=== PATIENT | female | born 1960 ===

== ENCOUNTER 2017-11-04 17:18 | Emergency (ER) | payer OTHER ==
[2017-11-04 17:32] VITALS: BMI 26.2
[2017-11-04 17:36] VITALS: RESP 18; TEMP 98.4
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
[2017-11-04 19:59] VITALS: BP 137/82; PULSE 71; O2SAT 98
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
== END 2017-11-04 19:59 | disposition home or self-care (01) ==
LOC: ED 17:18 → MERGE 17:18 → ED 19:59
DX: S09.90XA Unspecified injury of head, initial encounter (principal); S50.01XA Contusion of right elbow, initial encounter; S90.30XA Contusion of unspecified foot, initial encounter; Y04.0XXA Assault by unarmed brawl or fight, initial encounter

== ENCOUNTER 2018-03-27 17:45 | Observation (INO) | payer MEDICAID ==
[2018-03-27] MEDS ORDERED: Sodium Chloride 0.9% 1,000 ML IV STA (19:46)
[2018-03-27 20:45] LABS: ALB/GLOB RATIO 1.2 (1.1-1.8); ALBUMIN 4.6 g/dL (3.0-4.8); ALT/SGPT 32 U/L (7-56); AST/SGOT 36 U/L (14-36); BLOOD UREA NITROGEN 12 mg/dL (7-21); CALCIUM 9.4 mg/dL (8.4-10.5); GFR AFRICAN-AMERICAN > 60; GFR NON-AFRICAN AMERICAN > 60
[2018-03-27 20:53] LABS: RBC 4.88 10^6/uL (3.5-6.1); WHITE BLOOD COUNT 4.2 10^3/ul (4.5-11.0)
[2018-03-27 20:54] LABS: BASO % 0.5 % (0.0-3.0); EOS # 0.1 (0.0-0.7); EOS % 1.7 % (1.5-5.0); GRAN # 1.63 (1.4-6.5); GRAN % 38.8 % (50.0-68.0); LYMPH # 2.2 (1.2-3.4); MEAN CORPUSCULAR HEMOGLOBIN 28.7 pg (25.0-35.0); MEAN CORPUSCULAR HGB CONC 33.7 g/dl (31.0-37.0); MONO # 0.3 (0.1-0.6); RED CELL DISTRIBUTION WIDTH 13.1 % (11.5-14.5)
[2018-03-27 20:55] LABS: BASO # 0.02 K/mm3 (0.0-2.0)
[2018-03-27 21:02] LABS: TROPONIN I < 0.01 ng/mL
[2018-03-27 21:03] LABS: URINE BILIRUBIN NEGATIVE (NEGATIVE); URINE BLOOD NEGATIVE (NEGATIVE); URINE GLUCOSE (UA) NEGATIVE (NEGATIVE); URINE LEUKOCYTE ESTERASE TRACE Leu/uL (NEGATIVE); URINE PROTEIN NEGATIVE mg/dL (<30 mg/dL); URINE UROBILINOGEN 0.2 E.U./dL (<1 E.U./dL)
[2018-03-27 21:04] LABS: URINE APPEARANCE CLEAR (CLEAR); URINE COLOR YELLOW (YELLOW)
[2018-03-27 21:08] LABS: URINE RBC 0 - 2 /hpf (0-2)
[2018-03-27 21:09] LABS: URINE BACTERIA MOD (NEG)
--- NOTE | 2018-03-27 23:07 | ED PDOC ---
Arrival/HPI - General Chief Complaint: Dizziness/Lightheaded Time Seen by Provider: 03/27/18 18:53 Historian: Patient, Family - History of Present Illness Narrative History of Present Illness (Text): 03/28/18 00:07 57-year-old female presents today with dizziness and near syncope. Patient states since last night she's been feeling extremely dizzy. Patient states that she stands up he feels as if the room is spinning. Patient states she's had some intermittent palpitations. States she's been feeling nauseous. She denies any vomiting or diarrhea. No urinary symptoms. No fevers or chills. No sick contacts. pt states symptoms have improved. pt states while in the ER the nausea returned, but resolved shortly after. Time/Duration: Other (1 day) Past Medical History - Provider Review Nursing Documentation Reviewed: Yes - Travel History Have you recently traveled outside [place] w/in the past 3 mons?: No - Infectious Disease Hx of Infectious Diseases: None - Tetanus Immunization Tetanus Immunization: Unknown - Reproductive Menopause: Yes - Psychiatric Hx Substance Use: No - Anesthesia Hx Anesthesia: No Family/Social History - Physician Review Nursing Documentation Reviewed: Yes Family/Social History: Unknown Family HX Smoking Status: Never Smoked Hx Alcohol Use: No Hx Substance Use: No Allergies/Home Meds Allergies/Adverse Reactions: Allergies No Known Allergies Allergy (Verified 03/27/18 18:40) Home Medications: Home Meds Medication Instructions Recorded Confirmed Calcium Carbonate [Calcium] 1,200 mg PO DAILY 03/27/18 03/27/18 Review of Systems - Review of Systems Constitutional: absent: Fatigue, Fevers Eyes: absent: Vision Changes, Photophobia, Eye Pain Respiratory: absent: SOB, Cough Cardiovascular: Chest Pain, Palpitations. absent: Syncope Gastrointestinal: Nausea. absent: Abdominal Pain, Vomiting Genitourinary Female: absent: Dysuria, Frequency, Hematuria Musculoskeletal: absent: Arthralgias, Back Pain, Neck Pain Skin: absent: Rash Neurological: Dizziness Psychiatric: absent: Anxiety, Depression, Suicidal Ideation Physical Exam Vital Signs Reviewed: Yes Vital Signs Temp Pulse Resp BP Pulse Ox 03/27/18 22:36 74 18 114/83 99 03/27/18 20:35 70 18 111/68 99 03/27/18 18:37 98.4 F 73 18 110/66 99 Temperature: Afebrile Blood Pressure: Normal Pulse: Regular Respiratory Rate: Normal Appearance: Positive for: Well-Appearing, Non-Toxic, Comfortable Pain Distress: None Mental Status: Positive for: Alert and Oriented X 3 - Systems Exam Head: Present: Atraumatic Pupils: Present: PERRL Extroacular Muscles: Present: EOMI Conjunctiva: Present: Normal Mouth: Present: Moist Mucous Membranes Neck: Present: Normal Range of Motion, Trachea Midline. No: MIDLINE TENDERNESS , Paraspinal Tenderness Respiratory/Chest: Present: Clear to Auscultation, Good Air Exchange. No: Respiratory Distress, Accessory Muscle Use Cardiovascular: Present: Regular Rate and Rhythm, Normal S1, S2. No: Murmurs Abdomen: No: Tenderness, Distention, Peritoneal Signs, Rebound, Guarding Upper Extremity: Present: Normal ROM Lower Extremity: Present: Normal ROM Neurological: Present: GCS=15, Speech Normal, Motor Func Grossly Intact, Normal Sensory Function, Gait Normal Skin: Present: Warm, Dry, Normal Color. No: Rashes Psychiatric: Present: Alert, Oriented x 3 Medical Decision Making ED Course and Treatment: 03/28/18 00:12 57-year-old female presents to the dizziness chest pain and palpitations, and nausea which have been intermittent since last night CBC within normal limits CMP within normal limits Troponin within normal limits CAT scan of the head: FINDINGS: Brain: There is no evidence of intracranial hemorrhage, mass lesion, or mass effect. No abnormal extra-axial or parenchymal fluid collections. The posterior fossa is unremarkable. Ventricles: The ventricles and basilar cisterns are unremarkable. Bones/joints: The bony calvarium is unremarkable. Sinuses: Mild mucosal thickening present in the ethmoid sinuses. Mucous retention cyst in the right maxillary sinus present. Mastoid air cells: Normal as visualized. No mastoid effusion. Soft tissues: Normal. IMPRESSION: There is no acute intracranial process. Urinalysis: trace leukocytes ASA given Po case discussed with dr. son; accepts observational status admission. all aspects of this case were discussed the attending of record. impression; dizziness admit observational status to [facility]. - Lab Interpretations Lab Results: 03/27/18 20:29 03/27/18 20:29 Lab Results 03/27/18 20:29: Urine Color Yellow, Urine Appearance Clear, Urine pH 6.0, Ur Specific [place] 1.020, Urine Protein Negative, Urine Glucose (UA) Negative, Urine Ketones Negative, Urine Blood Negative, Urine Nitrate Negative, Urine Bilirubin Negative, Urine Urobilinogen 0.2, Ur Leukocyte Esterase Trace H, Urine RBC 0 - 2, Urine WBC 2 - 5, Ur Epithelial Cells 4 - 5, Urine Bacteria Mod 03/27/18 20:29: WBC 4.2 L, RBC 4.88, Hgb 14.0, Hct 41.5, MCV 85.0, MCH 28.7, MCHC 33.7, RDW 13.1, Plt Count 249, MPV 10.0, Gran % 38.8 L, Lymph % (Auto) 53.0 H, [place] % (Auto) 6.0, Eos % (Auto) 1.7, Baso % (Auto) 0.5, Gran # 1.63, Lymph # (Auto) 2.2, [place] # (Auto) 0.3, Eos # (Auto) 0.1, Baso # (Auto) 0.02 03/27/18 20:29: Sodium 141, Potassium 4.3, Chloride 99, Carbon Dioxide 30, Anion Gap 16, BUN 12, Creatinine 0.6 L, Est GFR ( Amer) > 60, Est GFR ( Non-Af Amer) > 60, Random Glucose 116 H, Calcium 9.4, Total Bilirubin 0.4, AST 36, ALT 32, Alkaline Phosphatase 71, Lactate Dehydrogenase 459, Total Creatine Kinase 59, Troponin I < 0.01, Total Protein 8.4 H, Albumin 4.6, Globulin 3.8, Albumin/Globulin Ratio 1.2 - RAD Interpretation Radiology Orders: 03/27/18 19:44 HEAD W/O CONTRAST [CT] Stat CHEST PORTABLE [RAD] Stat - Medication Orders Current Medication Orders: Discontinued Medications Aspirin (Aspirin) 325 mg PO STAT STA Stop: 03/28/18 00:14 Last Admin: 03/28/18 00:30 Dose: 325 mg Sodium Chloride (Sodium Chloride 0.9%) 1,000 mls @ 999 mls/hr IV .Q1H1M STA Stop: 03/27/18 20:46 Last Admin: 03/27/18 20:28 Dose: 999 mls/hr eMAR Start Stop Document 03/27/18 20:28 MS (Rec: 03/28/18 00:29 MS [id number]) Intravenous Solution Start Date 03/27/18 Start Time 20:28 End Date 03/27/18 End time 21:28 Total Infusion Time 60 Disposition/Present on Arrival - Present on Arrival Any Indicators Present on Arrival: No History of DVT/PE: No History of Uncontrolled Diabetes: No Urinary Catheter: No History of Decub. Ulcer: No History Surgical Site Infection Following: None - Disposition Have Diagnosis and Disposition been Completed?: Yes Diagnosis: Dizziness Disposition: HOSPITALIZED Disposition Time: 00:17 Patient Plan: Observation Patient Problems: Current Active Problems Problem Status Onset Dizziness Acute Condition: FAIR Forms: [employer] (Guatemalan)
--- NOTE | 2018-03-27 23:49 | CP.PCM.HP ---
History of Present Illness - History of Present Illness History of Present Illness: PGY-1 H&P for Dr. Klein This is a 57 year old female with PMHx hypothyroidism who presents for dizziness. This began yesterday evening and persisted this morning. Patient states that it feels that the room was spinning. She has never had this experience for her and now presents for evaluation. At the time of encounter, patient states that her dizziness has resolved. Patient states that she attributes these issues to menopause as she also feels palpitations and hot flashes intermittently. Her last menstrual cycle was 5 years ago. Patient has also been stressed because of her teenage daughters. She attributes that as a possible cause of her symptoms. Patient denies fever, chills, chest pain, dyspnea, abdominal pain, dysuria. PMHx: Hypothyroidism (states did not need medications for it) PSHx: Denies Allergies: NKDA Social: Denies tobacco, alcohol, drugs. Lives with and kids. Family Hx: Denies PMD: denies PMD but states that she travels to [place] once a year for a check-up Home medications: calcium Present on Admission - Present on Admission Any Indicators Present on Admission: No Review of Systems - Constitutional Constitutional: absent: Chills, Fever - EENT Eyes: absent: Change in Vision Ears: absent: Decreased Hearing Nose/Mouth/Throat: absent: Nasal Congestion - Cardiovascular Cardiovascular: Palpitations (intermittent). absent: Chest Pain - Respiratory Respiratory: absent: Dyspnea - Gastrointestinal Gastrointestinal: absent: Abdominal Pain, Constipation, Diarrhea, Nausea, Vomiting - Genitourinary Genitourinary: absent: Dysuria - Musculoskeletal Musculoskeletal: absent: Back Pain - Integumentary Integumentary: absent: Rash - Neurological Neurological: Dizziness (improved). absent: Weakness - Psychiatric Psychiatric: absent: Anxiety - Endocrine Endocrine: Palpitations (intermittent) Past Patient History - Infectious Disease Hx of Infectious Diseases: None - Tetanus Immunizations Tetanus Immunization: Unknown - Past Social History Smoking Status: Never Smoked - PSYCHIATRIC Hx Substance Use: No - SURGICAL HISTORY Hx Surgeries: No - ANESTHESIA Hx Anesthesia: No Meds Allergies/Adverse Reactions: Allergies Allergy/AdvReac Type Severity Reaction Status Date / Time No Known Allergies Allergy Verified 03/27/18 18:40 Physical Exam - Constitutional Appears: No Acute Distress - Head Exam Head Exam: ATRAUMATIC, NORMOCEPHALIC - Eye Exam Eye Exam: EOMI, PERRL - ENT Exam ENT Exam: Mucous Membranes Moist - Respiratory Exam Respiratory Exam: Clear to Auscultation Bilateral, NORMAL BREATHING PATTERN. absent: Rales, Rhonchi, Wheezes - Cardiovascular Exam Cardiovascular Exam: REGULAR RHYTHM, +S1, +S2 - GI/Abdominal Exam GI & Abdominal Exam: Normal Bowel Sounds, Soft. absent: Distended, Tenderness - Extremities Exam Extremities exam: Negative for: pedal edema - Neurological Exam Neurological exam: Alert, CN II-XII Intact, Oriented x3 - Psychiatric Exam Psychiatric exam: Normal Affect, Normal Mood - Skin Skin Exam: Dry, Warm Results - Vital Signs Recent Vital Signs: Last Vital Signs Temp 98.4 F 03/27/18 18:37 Pulse 74 03/27/18 22:36 Resp 18 03/27/18 22:36 BP 114/83 03/27/18 22:36 Pulse Ox 99 03/27/18 22:36 - Labs Result Diagrams: 03/27/18 20:29 03/27/18 20:29 Labs: Laboratory Results - last 24 hr 03/27/18 03/27/18 03/27/18 20:29 20:29 20:29 WBC 4.2 L RBC 4.88 Hgb 14.0 Hct 41.5 MCV 85.0 MCH 28.7 MCHC 33.7 RDW 13.1 Plt Count 249 MPV 10.0 Gran % 38.8 L Lymph % (Auto) 53.0 H [place] % (Auto) 6.0 Eos % (Auto) 1.7 Baso % (Auto) 0.5 Gran # 1.63 Lymph # (Auto) 2.2 [place] # (Auto) 0.3 Eos # (Auto) 0.1 Baso # (Auto) 0.02 Sodium 141 Potassium 4.3 Chloride 99 Carbon Dioxide 30 Anion Gap 16 BUN 12 Creatinine 0.6 L Est GFR ( Amer) > 60 Est GFR (Non-Af Amer) > 60 Random Glucose 116 H Calcium 9.4 Total Bilirubin 0.4 AST 36 ALT 32 Alkaline Phosphatase 71 Lactate Dehydrogenase 459 Total Creatine Kinase 59 Troponin I < 0.01 Total Protein 8.4 H Albumin 4.6 Globulin 3.8 Albumin/Globulin Ratio 1.2 Urine Color Yellow Urine Appearance Clear Urine pH 6.0 Ur Specific [place] 1.020 Urine Protein Negative Urine Glucose (UA) Negative Urine Ketones Negative Urine Blood Negative Urine Nitrate Negative Urine Bilirubin Negative Urine Urobilinogen 0.2 Ur Leukocyte Esterase Trace H Urine RBC 0 - 2 Urine WBC 2 - 5 Ur Epithelial Cells 4 - 5 Urine Bacteria Mod Assessment & Plan - Assessment and Plan (Free Text) Assessment: This is a 57 year old female with PMHx hypothyroidism who presents for dizziness. Plan: 1. Dizziness -NSR on initial EKG -initial troponin negative -continue to trend troponin and EKG -CT Head negative for acute pathology -orthostatic vitals as documented under patient care section are negative -f/u lipid panel, hemoglobin A1c, TSH, free T4 -Neurology consulted 2. Prophylaxis -Protonix -Heparin SC Discussed with Dr. Latoya Penaloza PGY-1
[2018-03-28] MEDS ORDERED: Pantoprazole 40 mg EC Tab PO SCH (06:00)
[2018-03-28] MEDS: Sodium Chloride 0.9% 1,000 ML IV SCH ×3 (06:14→10:49)
[2018-03-28 06:29] VITALS: BMI 10.5
[2018-03-28 06:32] VITALS: O2SAT 97
[2018-03-28 07:07] LABS: BASO # 0.02 K/mm3 (0.0-2.0); BASO % 0.4 % (0.0-3.0); EOS # 0.1 (0.0-0.7); GRAN # 1.98 (1.4-6.5); GRAN % 43.9 % (50.0-68.0); HEMOGLOBIN 12.6 g/dL (12.0-16.0); LYMPH % 45.1 % (22.0-35.0); MEAN CELL VOLUME 85.5 fl (80.0-105.0); MEAN CORPUSCULAR HEMOGLOBIN 28.2 pg (25.0-35.0); MEAN PLATELET VOLUME 10.2 fl (7.0-11.0); MONO # 0.4 (0.1-0.6); MONO % 8.6 % (1.0-6.0); RBC 4.47 10^6/uL (3.5-6.1); RED CELL DISTRIBUTION WIDTH 13.2 % (11.5-14.5); WHITE BLOOD COUNT 4.5 10^3/ul (4.5-11.0)
[2018-03-28 07:41] LABS: ALB/GLOB RATIO 1.2 (1.1-1.8); ALBUMIN 3.9 g/dL (3.0-4.8); ALT/SGPT 24 U/L (7-56); AST/SGOT 36 U/L (14-36); BLOOD UREA NITROGEN 12 mg/dL (7-21); CALCIUM 8.7 mg/dL (8.4-10.5); GFR AFRICAN-AMERICAN > 60; GFR NON-AFRICAN AMERICAN > 60; HDL CHOLESTEROL 49 mg/dL (29-60)
[2018-03-28 07:51] LABS: LDL CHOLESTEROL 111 mg/dL (0-129); TROPONIN I < 0.01 ng/mL
--- NOTE | 2018-03-28 08:02 | CT ---
PROCEDURE: CT HEAD WITHOUT CONTRAST. HISTORY: dizziness COMPARISON: None available. TECHNIQUE: Axial computed tomography images were obtained through the head/brain without intravenous contrast. Radiation dose: Total exam DLP = 1115 mGy-cm. This CT exam was performed using one or more of the following dose reduction techniques: Automated exposure control, adjustment of the mA and/or kV according to patient size, and/or use of iterative reconstruction technique. FINDINGS: HEMORRHAGE: No intracranial hemorrhage. BRAIN: No mass effect or edema. No atrophy or chronic microvascular ischemic changes. VENTRICLES: Unremarkable. No hydrocephalus. CALVARIUM: Unremarkable. PARANASAL SINUSES: Unremarkable as visualized. No significant inflammatory changes. MASTOID AIR CELLS: Unremarkable as visualized. No inflammatory changes. OTHER FINDINGS: None. IMPRESSION: No acute findings
--- NOTE | 2018-03-28 10:55 | RAD ---
HISTORY: dizziness COMPARISON: No prior. FINDINGS: LUNGS: No active pulmonary disease. PLEURA: No significant pleural effusion identified, no pneumothorax apparent. CARDIOVASCULAR: Normal. OSSEOUS STRUCTURES: No significant abnormalities. VISUALIZED UPPER ABDOMEN: Normal. OTHER FINDINGS: None. IMPRESSION: No active disease.
--- NOTE | 2018-03-28 13:37 | CP.PCM.DIS ---
<Moisés Hernandez - Last Filed: 03/28/18 14:19> Provider - Provider Date of Admission: 03/28/18 02:16 Attending physician: Aletha Briones MD Primary care physician: None Consults: Neurology: Dr. Maldonado Time Spent in preparation of Discharge (in minutes): 35 Diagnosis - Discharge Diagnosis (1) Dizziness Status: Acute (2) Hypothyroid Status: Chronic Hospital Course - Lab Results Lab Results: Most Recent Lab Values WBC 4.5 10^3/ul (4.5-11.0) 03/28/18 06:30 RBC 4.47 10^6/uL (3.5-6.1) 03/28/18 06:30 Hgb 12.6 g/dL (12.0-16.0) 03/28/18 06:30 Hct 38.2 % (36.0-48.0) 03/28/18 06:30 MCV 85.5 fl (80.0-105.0) 03/28/18 06:30 MCH 28.2 pg (25.0-35.0) 03/28/18 06:30 MCHC 33.0 g/dl (31.0-37.0) 03/28/18 06:30 RDW 13.2 % (11.5-14.5) 03/28/18 06:30 Plt Count 224 10^3/uL (120.0-450.0) 03/28/18 06:30 MPV 10.2 fl (7.0-11.0) 03/28/18 06:30 Gran % 43.9 % (50.0-68.0) L 03/28/18 06:30 Lymph % (Auto) 45.1 % (22.0-35.0) H 03/28/18 06:30 [place] % (Auto) 8.6 % (1.0-6.0) H 03/28/18 06:30 Eos % (Auto) 2.0 % (1.5-5.0) 03/28/18 06:30 Baso % (Auto) 0.4 % (0.0-3.0) 03/28/18 06:30 Gran # 1.98 (1.4-6.5) 03/28/18 06:30 Lymph # (Auto) 2.0 (1.2-3.4) 03/28/18 06:30 [place] # (Auto) 0.4 (0.1-0.6) 03/28/18 06:30 Eos # (Auto) 0.1 (0.0-0.7) 03/28/18 06:30 Baso # (Auto) 0.02 K/mm3 (0.0-2.0) 03/28/18 06:30 Sodium 140 mmol/L (132-148) 03/28/18 06:30 Potassium 4.0 mmol/L (3.6-5.0) 03/28/18 06:30 Chloride 102 mmol/L (98-107) 03/28/18 06:30 Carbon Dioxide 29 mmol/L (21-33) 03/28/18 06:30 Anion Gap 13 (10-20) 03/28/18 06:30 BUN 12 mg/dL (7-21) 03/28/18 06:30 Creatinine 0.7 mg/dl (0.7-1.2) 03/28/18 06:30 Est GFR ( Amer) > 60 03/28/18 06:30 Est GFR (Non-Af Amer) > 60 03/28/18 06:30 Random Glucose 107 mg/dL (70-110) 03/28/18 06:30 Hemoglobin A1c 5.6 % (4.2-6.5) 03/28/18 06:30 Calcium 8.7 mg/dL (8.4-10.5) 03/28/18 06:30 Phosphorus 3.6 mg/dL (2.5-4.5) 03/28/18 06:30 Magnesium 2.0 mg/dL (1.7-2.2) 03/28/18 06:30 Total Bilirubin 0.4 mg/dL (0.2-1.3) 03/28/18 06:30 AST 36 U/L (14-36) 03/28/18 06:30 ALT 24 U/L (7-56) 03/28/18 06:30 Alkaline Phosphatase 62 U/L (38-126) 03/28/18 06:30 Lactate Dehydrogenase 459 U/L (333-699) 03/27/18 20:29 Total Creatine Kinase 59 U/L (35-230) 03/27/18 20:29 Troponin I < 0.01 ng/mL 03/28/18 06:30 Total Protein 7.2 g/dL (5.8-8.3) 03/28/18 06:30 Albumin 3.9 g/dL (3.0-4.8) 03/28/18 06:30 Globulin 3.3 gm/dL 03/28/18 06: Albumin/Globulin Ratio 1.2 (1.1-1.8) 03/28/18 06:30 Triglycerides 99 mg/dL (35-160) 03/28/18 06:30 Cholesterol 198 mg/dL (130-200) 03/28/18 06:30 LDL Cholesterol Direct 111 mg/dL (0-129) 03/28/18: HDL Cholesterol 49 mg/dL (29-60) 03/28/18:30 Free T4 1.00 ng/dL (0.78-2.19) 03/28/18 06: TSH 3rd Generation 9.48 mIU/mL (0.46-4.68) H 03/28/18 06:30 Urine Color Yellow (YELLOW) 03/27/18 20: Urine Appearance Clear (CLEAR) 03/27/18 20: Urine pH 6.0 (4.7-8.0) 03/27/18 20: Ur Specific [place] 1.020 (1.005-1.035) 03/27/18 20: Urine Protein Negative mg/dL (<30 mg/dL) 03/27/18 20: Urine Glucose (UA) Negative mg/dL (NEGATIVE) 03/27/18 20: Urine Ketones Negative mg/dL (NEGATIVE) 03/27/18 20: Urine Blood Negative (NEGATIVE) 03/27/18 20: Urine Nitrate Negative (NEGATIVE) 03/27/18 20: Urine Bilirubin Negative (NEGATIVE) 03/27/18 20: Urine Urobilinogen 0.2 E.U./dL (<1 E.U./dL) 03/27/18 20:29 Ur Leukocyte Esterase Trace Angie/uL (NEGATIVE) H 03/27/18 20:29 Urine RBC 0 - 2 /hpf (0-2) 03/27/18 20:29 Urine WBC 2 - 5 /hpf (0-6) 03/27/18 20:29 Ur Epithelial Cells 4 - 5 /hpf (0-5) 03/27/18 20:29 Urine Bacteria Mod (NEG) 03/27/18 20:29 - Hospital Course Hospital Course: Patient is a 57 year old female with past medical history of hypothyroidism who is currently not complaint with thyroid medication who presented to [facility] ED complaining of dizziness and visualization of room spinning. Patient was evaluated in ED and found to have resolution of her symptoms. She was admitted for further observation and medical management. On admission EKG was NSR and within normal range, Head CT was read as negative for intracranial pathology. Patient underwent medical lab testing which showed elevated TSH and normal free T4. Patient was previously taking Synthroid for hypothyroidism. Patient was given prescription for low dose Synthroid. Neurology was consulted and evaluated the patient. Patient was able to ambulate without assistance and had resolution of her symptoms at time of interview and exam. Patient was instructed on risks and signs and symptoms to be mindful of upon discharge. Discharge planning including outpatient follow up, medication reconciliation and signs and symptoms to be aware of for return were discussed in detail. Patient was in understanding and agreeable. See chart for full details. - Date & Time of H&P Date of H&P: 03/27/18 Time of H&P: 23:49 Discharge Exam - Head Exam Head Exam: ATRAUMATIC, NORMOCEPHALIC - Eye Exam Eye Exam: EOMI, PERRL - Neck Exam Neck exam: Full Rom - Respiratory Exam Respiratory Exam: Clear to PA & Lateral, Wheezes, NORMAL BREATHING PATTERN, UNREMARKABLE. absent: Rales, Rhonchi, Stridor - Cardiovascular Exam Cardiovascular Exam: REGULAR RHYTHM, +S1, +S2 - GI/Abdominal Exam GI & Abdominal Exam: Normal Bowel Sounds, Soft, Unremarkable. absent: Tenderness - Extremities Exam Extremities exam: normal capillary refill, pedal pulses present - Neurological Exam Neurological exam: Alert, CN II-XII Intact, Normal Gait, Oriented x3 - Psychiatric Exam Psychiatric exam: Normal Affect, Normal Mood - Skin Skin Exam: Dry, Warm Discharge Plan - Discharge Medications Prescriptions: Levothyroxine [Synthroid] 50 mcg PO QAM #30 tab Meclizine [Antivert] 12.5 mg PO TID PRN #21 tab PRN Reason: Dizziness - Follow Up Plan Condition: FAIR Disposition: HOME/ ROUTINE Instructions: Hypothyroidism (Underactive Thyroid) (DC), Dizziness, Nonvertigo , (DC) Additional Instructions: Follow up with [facility] outpatient clinic, referral information provided Take medications as prescribed to you - Synthroid 50mcg PO QAM Return to nearest emergency department if you experience loss of consciousness, chest pain, shortness of breath, focal weakness, change in vision, speech or facial asymmetry Referrals: [facility] at [facility] [Outside] <Aletha Briones - Last Filed: 03/29/18 09:25> Provider - Provider Date of Admission: 03/28/18 02:16 Attending physician: Aletha Briones MD Hospital Course - Lab Results Lab Results: Most Recent Lab Values WBC 4.5 10^3/ul (4.5-11.0) 03/28/18 06:30 RBC 4.47 10^6/uL (3.5-6.1) 03/28/18 06:30 Hgb 12.6 g/dL (12.0-16.0) 03/28/18 06:30 Hct 38.2 % (36.0-48.0) 03/28/18 06:30 MCV 85.5 fl (80.0-105.0) 03/28/18 06:30 MCH 28.2 pg (25.0-35.0) 03/28/18 06:30 MCHC 33.0 g/dl (31.0-37.0) 03/28/18 06:30 RDW 13.2 % (11.5-14.5) 03/28/18 06:30 Plt Count 224 10^3/uL (120.0-450.0) 03/28/18 06:30 MPV 10.2 fl (7.0-11.0) 03/28/18 06:30 Gran % 43.9 % (50.0-68.0) L 03/28/18 06:30 Lymph % (Auto) 45.1 % (22.0-35.0) H 03/28/18 06:30 [place] % (Auto) 8.6 % (1.0-6.0) H 03/28/18 06:30 Eos % (Auto) 2.0 % (1.5-5.0) 03/28/18 06:30 Baso % (Auto) 0.4 % (0.0-3.0) 03/28/18 06:30 Gran # 1.98 (1.4-6.5) 03/28/18 06:30 Lymph # (Auto) 2.0 (1.2-3.4) 03/28/18 06:30 [place] # (Auto) 0.4 (0.1-0.6) 03/28/18 06:30 Eos # (Auto) 0.1 (0.0-0.7) 03/28/18 06:30 Baso # (Auto) 0.02 K/mm3 (0.0-2.0) 03/28/18 06:30 Sodium 140 mmol/L (132-148) 03/28/18 06:30 Potassium 4.0 mmol/L (3.6-5.0) 03/28/18 06:30 Chloride 102 mmol/L (98-107) 03/28/18 06:30 Carbon Dioxide 29 mmol/L (21-33) 03/28/18 06:30 Anion Gap 13 (10-20) 03/28/18 06:30 BUN 12 mg/dL (7-21) 03/28/18 06:30 Creatinine 0.7 mg/dl (0.7-1.2) 03/28/18 06:30 Est GFR ( Amer) > 60 03/28/18 06:30 Est GFR (Non-Af Amer) > 60 03/28/18 06:30 Random Glucose 107 mg/dL (70-110) 03/28/18 06:30 Hemoglobin A1c 5.6 % (4.2-6.5) 03/28/18 06:30 Calcium 8.7 mg/dL (8.4-10.5) 03/28/18 06:30 Phosphorus 3.6 mg/dL (2.5-4.5) 03/28/18 06:30 Magnesium 2.0 mg/dL (1.7-2.2) 03/28/18 06:30 Total Bilirubin 0.4 mg/dL (0.2-1.3) 03/28/18 06:30 AST 36 U/L (14-36) 03/28/18 06:30 ALT 24 U/L (7-56) 03/28/18 06:30 Alkaline Phosphatase 62 U/L (38-126) 03/28/18 06:30 Lactate Dehydrogenase 459 U/L (333-699) 03/27/18 20: Total Creatine Kinase 59 U/L (35-230) 03/27/18 20: Troponin I < 0.01 ng/mL 03/28/18 06:30 Total Protein 7.2 g/dL (5.8-8.3) 03/28/18 06:30 Albumin 3.9 g/dL (3.0-4.8) 03/28/18 06:30 Globulin 3.3 gm/dL 03/28/18 06: Albumin/Globulin Ratio 1.2 (1.1-1.8) 03/28/18 06:30 Triglycerides 99 mg/dL (35-160) 03/28/18 06: Cholesterol 198 mg/dL (130-200) 03/28/18 06:30 LDL Cholesterol Direct 111 mg/dL (0-129) 03/28/18 06:30 HDL Cholesterol 49 mg/dL (29-60) 03/28/18:30 Free T4 1.00 ng/dL (0.78-2.19) 03/28/18 06:30 TSH 3rd Generation 9.48 mIU/mL (0.46-4.68) H 03/28/18 06:30 Urine Color Yellow (YELLOW) 03/27/18 20: Urine Appearance Clear (CLEAR) 03/27/18 20: Urine pH 6.0 (4.7-8.0) 03/27/18 20: Ur Specific [place] 1.020 (1.005-1.035) 03/27/18 20: Urine Protein Negative mg/dL (<30 mg/dL) 03/27/18 20: Urine Glucose (UA) Negative mg/dL (NEGATIVE) 03/27/18 20: Urine Ketones Negative mg/dL (NEGATIVE) 03/27/18: Urine Blood Negative (NEGATIVE) 03/27/18: Urine Nitrate Negative (NEGATIVE) 03/27/18 20: Urine Bilirubin Negative (NEGATIVE) 03/27/18 20: Urine Urobilinogen 0.2 E.U./dL (<1 E.U./dL) 03/27/18 20: Ur Leukocyte Esterase Trace Angie/uL (NEGATIVE) H 03/27/18 20:29 Urine RBC 0 - 2 /hpf (0-2) 03/27/18 20:29 Urine WBC 2 - 5 /hpf (0-6) 03/27/18 20:29 Ur Epithelial Cells 4 - 5 /hpf (0-5) 03/27/18 20:29 Urine Bacteria Mod (NEG) 03/27/18 20:29 Attending/Attestation - Attestation I have personally seen and examined this patient.: Yes I have fully participated in the care of the patient.: Yes I have reviewed all pertinent clinical information, including history, physical exam and plan: Yes Notes (Text): 03/29/18 09:20 Medical record note made by the resident after discussion with my direction and input after the patient was personally seen and examined by me. I have reviewed the chart and agree that the record accurately reflects by personal performance of the history, physical exam, data review, and medical decision-making, in the course for the patient. I have also personally directed the plan of care. 57 yrs old female was admitted with dizziness and vertigo while standing.Patient symptoms were likely due to orthostatic hypotension.There was no focal deficit.Patient symptms has resolved.She is ambulatory.She will be discharged home and will follow up with PCP. Management plan was discussed in detail with patient. Education was provided.
--- NOTE | 2018-03-28 13:46 | CARD ---
APPROVED REPORT EKG Measurement Heart [id number] <Conclusion> Normal sinus rhythm Normal ECG
[2018-03-28 13:52] VITALS: BP 115/69; PULSE 71; RESP 16; TEMP 98.2
--- NOTE | 2018-03-28 14:11 | CARD ---
APPROVED REPORT EKG Measurement Heart [id number] <Conclusion> Normal sinus rhythm Normal ECG
--- NOTE | 2018-03-28 15:01 | CP.PCM.CON ---
History of Present Illness - History of Present Illness History of Present Illness: Mrs. Dukes is a 57-year-old woman with a past medical history of hypothyroidism , who states that she has been having episodes of hot flashes and dizziness. She had two episodes during which she felt the room was spinning, but these only lasted a few seconds. She attributes her symptoms to menopause. She denied headaches, nausea, vomiting, weakness, sensory changes, difficulty with ambulation or any other associated symptoms. CT head was normal. Review of Systems - Review of Systems All systems: reviewed and no additional remarkable complaints except Past Patient History - Infectious Disease Hx of Infectious Diseases: None - Tetanus Immunizations Tetanus Immunization: Unknown - Past Social History Smoking Status: Never Smoked - MUSCULOSKELETAL/RHEUMATOLOGICAL Hx Falls: No - PSYCHIATRIC Hx Substance Use: No - SURGICAL HISTORY Other/Comment: no significant past medical history - ANESTHESIA Hx Anesthesia: No Meds Home Medications: Home Medication List Medication Instructions Recorded Confirmed Type Levothyroxine [Synthroid] 50 mcg PO QAM #30 tab 03/28/18 Rx Meclizine [Antivert] 12.5 mg PO TID PRN #21 tab 03/28/18 Rx Allergies/Adverse Reactions: Allergies Allergy/AdvReac Type Severity Reaction Status Date / Time No Known Allergies Allergy Verified 03/27/18 18:40 - Medications Medications: Current Medications Heparin Sodium (Porcine) (Heparin) 5,000 units SC Q12H ASIA PRN Reason: Protocol Last Admin: 03/28/18 06:09 Dose: 5,000 units Sodium Chloride (Sodium Chloride 0.9%) 1,000 mls @ 125 mls/hr IV .Q8H [facility] Last Admin: 03/28/18 10:49 Dose: 125 mls/hr Pantoprazole Sodium (Protonix Ec Tab) 40 mg PO 0600 [facility] Last Admin: 03/28/18 06:09 Dose: 40 mg Physical Exam - Neurological Exam Neurological exam: Alert, CN II-XII Intact, Normal Gait, Oriented x3, Reflexes Normal Results - Vital Signs Recent Vital Signs: Last Vital Signs Temp 98.2 F 03/28/18 12:00 Pulse 71 03/28/18 14:00 Resp 16 03/28/18 12:00 BP 115/69 03/28/18 12:00 Pulse Ox 97 03/28/18 06:00 - Labs Result Diagrams: 03/28/18 06:30 03/28/18 06:30 Labs: Laboratory Results - last 24 hr 03/28/18 03/28/18 03/28/18 06:30 06:30 06:30 WBC 4.5 RBC 4.47 Hgb 12.6 Hct 38.2 MCV 85.5 MCH 28.2 MCHC 33.0 RDW 13.2 Plt Count 224 MPV 10.2 Gran % 43.9 L Lymph % (Auto) 45.1 H [place] % (Auto) 8.6 H Eos % (Auto) 2.0 Baso % (Auto) 0.4 Gran # 1.98 Lymph # (Auto) 2.0 [place] # (Auto) 0.4 Eos # (Auto) 0.1 Baso # (Auto) 0.02 Sodium 140 Potassium 4.0 Chloride 102 Carbon Dioxide 29 Anion Gap 13 BUN 12 Creatinine 0.7 Est GFR ( Amer) > 60 Est GFR (Non-Af Amer) > 60 Random Glucose 107 Hemoglobin A1c Calcium 8.7 Phosphorus 3.6 Magnesium 2.0 Total Bilirubin 0.4 AST 36 ALT 24 Alkaline Phosphatase 62 Troponin I < 0.01 Total Protein 7.2 Albumin 3.9 Globulin 3.3 Albumin/Globulin Ratio 1.2 Triglycerides 99 Cholesterol 198 LDL Cholesterol Direct 111 HDL Cholesterol 49 Free T4 1.00 TSH 3rd Generation 9.48 H 03/28/18 06:30 WBC RBC Hgb Hct MCV MCH MCHC RDW Plt Count MPV Gran % Lymph % (Auto) [place] % (Auto) Eos % (Auto) Baso % (Auto) Gran # Lymph # (Auto) [place] # (Auto) Eos # (Auto) Baso # (Auto) Sodium Potassium Chloride Carbon Dioxide Anion Gap BUN Creatinine Est GFR ( Amer) Est GFR (Non-Af Amer) Random Glucose Hemoglobin A1c 5.6 Calcium Phosphorus Magnesium Total Bilirubin AST ALT Alkaline Phosphatase Troponin I Total Protein Albumin Globulin Albumin/Globulin Ratio Triglycerides Cholesterol LDL Cholesterol Direct HDL Cholesterol Free T4 TSH 3rd Generation Assessment & Plan (1) Dizziness Assessment and Plan: Likely associated to menopause or positional changes. No further recommendations at this time. May follow up as outpatient. Status: Resolved Priority: Medium
== END 2018-03-28 17:00 | disposition home or self-care (01) ==
LOC: ED 17:45 → ERH 03-28 02:16 → 2RNO 03-28 04:25
PROVIDERS: ADMIT Internal Medicine; ATTEND Internal Medicine
DX: I95.1 Orthostatic hypotension (principal); E03.9 Hypothyroidism, unspecified; R42 Dizziness and giddiness; N95.1 Menopausal and female climacteric states; Z79.899 Other long term (current) drug therapy
CPT/HCPCS: 36415; 70450; 71045; 80053; 80061; 81001; 82550; 83036; 83615; 83735; 84100; 84439; 84443; 84484; 85025; 87086; 93005; 96360; 96372; 99285; G0378; J1644; J7030